=== PATIENT | male | born 1995 | race Caucasian/White ===

== ENCOUNTER → 2020-04-03 | Outpatient (CLI) | payer BC ==
--- NOTE | 2020-04-03 12:41 | CONS ---
CONSULTATION DATE OF SERVICE: 04/03/2020 A 24-year-old gentleman who has been evaluated in [facility] Center for possible obstructive sleep apnea-hypopnea syndrome. HISTORY OF PRESENT ILLNESS/SLEEP WAKE EVALUATION: Patient usual sleep schedule from 10 p.m. to 6:30 a.m. on weekdays and to 7 am on weekends. He may have problems with falling asleep, although no TV in bedroom. Usually sleeps on the back position or in different position. According to his , he snores and he wakes up from sleep 3 times with nocturia. Positive history of sleep walking since childhood, presently he had about one episode of sleepwalking per month. Positive history of sleep-talking. In the morning, patient wakes up tired. Usually does not take any naps. [place] Sleepiness Scale is 3. PAST MEDICAL HISTORY: Positive for episodes of cardiac arrhythmia about 2 years ago, headaches. MEDICATIONS: Ibuprofen and Tylenol on p.r.n. basis for headaches. PAST SURGICAL HISTORY: None. SOCIAL HISTORY: Negative for smoking. Alcohol consumption occasional. FAMILY HISTORY: Cancer. REVIEW OF SYSTEMS: Snoring, multiple awakenings from sleep, episodes of sleep walking. PHYSICAL EXAM: gentleman without distress, BP 119/74, HR 52, RR 15, height 6, 0, weight 243.4, BMI 32.9, temperature 98.5, oxygen saturation at room air 97%. OROPHARYNX: Moderately low position of soft palate, Mallampati 2-3. Neck 16-1/4 inches in circumference. LUNGS: Clear to percussion and to auscultation. Good air exchange. No wheezing or rhonchi. HEART: S1, S2 regular. No murmurs, gallops, or rubs. ABDOMEN: Soft and nontender. Bowel sounds are present. No organomegaly appreciated. EXTREMITIES: No clubbing or cyanosis. CUSTOMER CONTACT SALES ASSOCIATE: Awake, alert, and oriented X3. Cranial nerves 2 to 7 intact. There is no fasciculation or atrophy. noted. No focal deficits observed. IMPRESSION: 1. Snoring, multiple awakenings from sleep with nocturia, moderately low position of soft palate, possible obstructive sleep apnea-hypopnea syndrome. 2. Sleepwalking presently about one time per month. 3. Sleep-talking. 4. History of cardiac arrhythmia. 5. Episodes of headaches. PLAN: 1. Polysomnography for evaluation of patient's breathing during sleep. 2. CPAP/BiPAP titration if sleep study confirms obstructive sleep apnea-hypopnea syndrome. 3. Preferable position during sleep on the side. 4. No driving if patient feels any sleepiness. 5. I will see patient for follow up visit to explain results of testing and following plan. Thank you very much for referring this patient for consultation. Sincerely, Wally Monzon MD, PhD, FAASM Diplomat of [employer] Stitcher of [facility] MMODL / IJN: [id number] /
== END | disposition home or self-care (01) ==
LOC: SLEEP 10:44
PROVIDERS: ATTEND Family Medicine
DX: R35.1 Nocturia (principal); F51.3 Sleepwalking [somnambulism]; G47.8 Other sleep disorders; Z86.79 Personal history of other diseases of the circulatory system; Z86.69 Personal history of other diseases of the nervous system and sense organs
CPT/HCPCS: 99211

== ENCOUNTER → 2020-04-24 | Outpatient (CLI) | payer BC ==
--- NOTE | 2020-04-24 16:39 | SFUN ---
SLEEP CENTER FOLLOW UP NOTE DATE OF SERVICE: A 24-year-old gentleman who has been followed in the Sleep Center to discuss results of the sleep test in following plan. I discussed results of sleep study with patient in detail. No significant respiratory abnormalities have been documented. Normal oxygenation during sleep. Snoring has been documented. Sleep talking has been documented. The patient also has history of sleepwalking since childhood. Presently, it is about one time per month. I discussed with the patient and mechanism of sleepwalking, that it is coming from delta sleep and amount of delta sleep may be increased with sleep restriction and subsequently that may increase risk for sleepwalking. [place] Sleepiness Scale today is 3. MEDICATIONS: Ibuprofen [id number]. PHYSICAL EXAM: Patient in no distress, BP 134/74, HR 52, RR16, temperature 98.6, oxygen saturation on room air 97%. HEENT: PERRLA, EOMI, evaluation of oropharynx showed tongue protrudes midline. NECK: Supple, no JVD. Thyroid is not palpable. LUNGS: Clear to percussion and to auscultation. Good air exchange. No wheezing or rhonchi. HEART: S1, S2 regular. No murmurs, gallops, or rubs. ABDOMEN: Soft and nontender. Bowel sounds are present. No organomegaly appreciated. EXTREMITIES: No clubbing or cyanosis. CLOTH GRADER: Awake, alert, and oriented X3. Cranial nerves 2 to 7 intact. There is no fasciculation or atrophy. noted. No focal deficits observed. IMPRESSION: 1. No significant respiratory abnormalities by results of sleep test. Normal oxygenation during sleep. 2. Mild snoring has been documented. 3. Sleepwalking about one time per month. 4. Sleeptalking. 5. Bradycardia. PLAN: 1. Sleep hygiene with regular time in bed for at least 8 hours. I explained to the patient the risk for increasing episodes of sleepwalking with restriction of the sleep. 2. Precautions related to driving. No driving if feeling sleepiness. 3. Preferable position during the sleep on the side. 4. Spent with patient 25 minutes. Thank you very much for allowing me to participate in the management of your patient. Sincerely, Walyl Monzon MD, PhD, FAASM Diplomat of [employer] Service Station Manager [facility] MMODL / IJN: [id number] /
== END | disposition home or self-care (01) ==
LOC: SLEEP 13:08
PROVIDERS: ATTEND Internal Medicine
DX: R06.83 Snoring (principal); R00.1 Bradycardia, unspecified; F51.3 Sleepwalking [somnambulism]

== ENCOUNTER → 2021-02-17 | Outpatient (CLI) | payer OTHER ==
[2021-02-17 14:06] LABS: Creatinine 24 Hour,Urine 489.6 mg/24hr (1000.0-2000.0)
[2021-02-17 18:44] LABS: Urine Creatinine 32.5 mg/dL
[2021-02-17 19:00] LABS: Creatinine,Urine Random 29.3 mg/dL
[2021-02-17 23:21] LABS: Total Volume 24 Hour,Urine 3200 mL
== END | disposition home or self-care (01) ==
LOC: LABWHC1 08:25
PROVIDERS: ATTEND Surgery
DX: Z00.5 Encounter for examination of potential donor of organ and tissue (principal)
CPT/HCPCS: 36415; 81050; 82043; 82570; 82575; 84156

== ENCOUNTER 2021-07-26 23:29 | Emergency (ER) | payer OTHER ==
[2021-07-26 23:34] VITALS: TEMP 97.3
[2021-07-27] MEDS ORDERED: SODIUM CHLORIDE 0.9% 1,000 ML IV STA ×2 (00:13→01:47)
[2021-07-27] MEDS ORDERED: ONDANSETRON 4 MG/2 ML VIAL IVP STA ×2 (00:13→01:47)
[2021-07-27] MEDS ORDERED: FAMOTIDINE 20 MG/2 ML VIAL IV STA (00:14)
--- NOTE | 2021-07-27 00:17 | ED ---
General Adult HPI - General Source: patient, RN notes reviewed Mode of arrival: ambulatory <Anna Ball - Last Filed: 07/27/21 17:01> <Monse Mora - Last Filed: 07/29/21 23:51> - General Chief complaint: Nausea/Vomiting/Diarrhea Stated complaint: Vomiting Time Seen by Provider: 07/26/21 23:57 - History of Present Illness Initial comments: 26-year-old male presents to the emergency department independently for evaluation of nausea, vomiting, and diarrhea. Patient states symptoms began this evening around 8 PM after having had chicken noodle soup for dinner around 6:00pm. Patient attributes his symptoms to food poisoning as his spouse has similar complaints. Patient denies any known sick exposures. States he has been eating and drinking and feeling fine until this evening. Complains of mild abdominal discomfort he attributes to multiple episodes of vomiting. Denies fever, headache, chest pain, shortness of breath, constipation, dysuria, and hematuria. (Anna Ball) - Related Data Previous Rx's Medication Instructions Recorded Ondansetron Odt [Zofran Odt] 4 mg PO Q8HR PRN #10 tab 07/27/21 Allergies Allergy/AdvReac Type Severity Reaction Status Date / Time No Known Allergies Allergy Verified 07/26/21 23:34 Review of Systems ROS Other: All systems not noted in ROS Statement are negative. <Anna Ball - Last Filed: 07/27/21 17:01> ROS Other: All systems not noted in ROS Statement are negative. <Monse Mora - Last Filed: 07/29/21 23:51> ROS Statement: Those systems with pertinent positive or pertinent negative responses have been documented in the HPI. Past Medical History Past Medical History: No Reported History History of Any Multi-Drug Resistant Organisms: None Reported Past Surgical History: No Surgical Hx Reported Smoking Status: Never smoker Past Alcohol Use History: None Reported Past Drug Use History: None Reported <Anna Ball - Last Filed: 07/27/21 17:01> General Exam Limitations: no limitations (Well-developed, well-nourished male in no acute distress. Initial temperature 97.3, pulse 82, respirations 19, blood pressure 120/77, pulse ox 98% on room air.) General appearance: alert, in no apparent distress ENT exam: Present: normal exam, normal oropharynx, mucous membranes moist Respiratory exam: Present: normal lung sounds bilaterally. Absent: respiratory distress, wheezes, rales, rhonchi, stridor Cardiovascular Exam: Present: regular rate, normal rhythm, normal heart sounds. Absent: systolic murmur, diastolic murmur, rubs, gallop, clicks GI/Abdominal exam: Present: soft, tenderness (Mild epigastric tenderness upon palpation), normal bowel sounds. Absent: distended, guarding, rebound, rigid Neurological exam: Present: alert, oriented X3, CN II-XII intact Psychiatric exam: Present: normal affect, normal mood Skin exam: Present: warm, dry, intact, pallor <Anna Ball - Last Filed: 07/27/21 17:01> Course <Anna Ball - Last Filed: 07/27/21 17:01> Vital Signs 07/26/21 07/27/21 07/27/21 23:31 02:19 03:11 Temperature 97.3 F L Pulse Rate 82 76 76 Respiratory 19 16 18 Rate Blood Pressure 120/77 123/76 137/75 O2 Sat by Pulse 98 98 97 Oximetry - Reevaluation(s) Reevaluation #1: 07/27/21 01:45 Patient experienced approximately an hour with relief of symptoms, though is now vomiting again. Zofran and IVF orders. Will continue to monitor. 07/27/21 02:15 Upon reevaluation, patient is resting comfortably and verbalizes readiness for discharge. (Anna Ball) Medical Decision Making - Lab Data Result diagrams: 07/27/21 00:26 07/27/21 00:26 <Anna Ball - Last Filed: 07/27/21 17:01> - Lab Data Result diagrams: 07/27/21 00:26 07/27/21 00:26 <Monse Mora - Last Filed: 07/29/21 23:51> - Medical Decision Making 26-year-old male with no significant past medical history presents to the emergency department for evaluation of nausea, vomiting, diarrhea, onset this evening. Upon exam, patient appears to be feeling poorly, though is nontoxic in appearance. Patient afebrile, not tachycardic nor tachypneic. He is having occasional episodes of vomiting. Attributes symptoms to include as other members of his household are experiencing similar symptoms after consuming chicken noodle dinner tonight. Laboratory studies were obtained and are unremarkable. Patient was given IV fluids and antiemetics with significant improvement. Patient verbalizes readiness for discharge therefore he will be encouraged to follow up with his PCP as needed. Zofran starter pack was dispensed. Return parameters were discussed in detail. Patient verbalizes understanding and agrees with this plan. (Anna Ball) I was available for consultation in the emergency department. The history and physical exam were done by the midlevel provider. I was consulted for this patients care. I reviewed the case with the midlevel provider and based on their presentation of the patient, I agree with the assessment, medical decision making and plan of care as documented. Chart was dictated using [employer] dictation software. Attempts were made to correct any dictation errors however some typographical errors may persist. Patient was seen during a national state of emergency due to the Covid-19 pandemic. (Monse Mora) - Lab Data Lab Results 07/27/21 07/27/21 Range/Units 00:26 00:26 WBC 10.0 (3.8-10.6) k/uL RBC 5.08 (4.30-5.90) m/uL Hgb 15.3 (13.0-17.5) gm/dL Hct 46.7 (39.0-53.0) % MCV 91.8 (80.0-100.0) fL MCH 30.0 (25.0-35.0) pg MCHC 32.7 (31.0-37.0) g/dL RDW 12.2 (11.5-15.5) % Plt Count 222 (150-450) k/uL MPV 7.1 Neutrophils % 81 % Lymphocytes % 15 % Monocytes % 3 % Eosinophils % 1 % Basophils % 0 % Neutrophils # 8.0 H (1.3-7.7) k/uL Lymphocytes # 1.4 (1.0-4.8) k/uL Monocytes # 0.3 (0-1.0) k/uL Eosinophils # 0.1 (0-0.7) k/uL Basophils # 0.0 (0-0.2) k/uL Sodium 138 (137-145) mmol/L Potassium 4.0 (3.5-5.1) mmol/L Chloride 102 (98-107) mmol/L Carbon Dioxide 25 (22-30) mmol/L Anion Gap 11 mmol/L BUN 22 H (9-20) mg/dL Creatinine 1.04 (0.66-1.25) mg/dL Est GFR (CKD-EPI)AfAm >90 (>60 ml/min/1.73 sqM) Est GFR (CKD-EPI)NonAf >90 (>60 ml/min/1.73 sqM) Glucose 106 H (74-99) mg/dL Calcium 9.5 (8.4-10.2) mg/dL Total Bilirubin 0.8 (0.2-1.3) mg/dL AST 34 (17-59) U/L ALT 28 (4-49) U/L Alkaline Phosphatase 76 (38-126) U/L Total Protein 8.3 H (6.3-8.2) g/dL Albumin 4.8 (3.5-5.0) g/dL Lipase 64 (23-300) U/L Disposition Is patient prescribed a controlled substance at d/c from ED?: No Time of Disposition: 03:01 <Anna Ball - Last Filed: 07/27/21 17:01> <Monse Mora - Last Filed: 07/29/21 23:51> Clinical Impression: Nausea & vomiting Disposition: HOME SELF-CARE Condition: Stable Instructions (If sedation given, give patient instructions): Acute Nausea and Vomiting (ED) Additional Instructions: Consider electrolyte solutions such as Gatorade or Powerade. Take Zofran for nausea. Implement "brat" diet as discussed (bananas, rice, applesauce, toast). Follow-up with your PCP for recheck in the next few days. Return to the emergency department with any new, worsening, or concerning symptoms. Prescriptions: Ondansetron Odt [Zofran Odt] 4 mg PO Q8HR PRN #10 tab PRN Reason: Nausea Referrals: Josephine Anderson MD [Primary Care Provider] - 1-2 days
[2021-07-27 00:32] LABS: Basophils % (A) 0 %; Eosinophils # (A) 0.1 k/uL (0-0.7); Eosinophils % (A) 1 %; HCT 46.7 % (39.0-53.0); HGB 15.3 gm/dL (13.0-17.5); Lymphocytes # (A) 1.4 k/uL (1.0-4.8); Lymphocytes % (A) 15 %; MCHC 32.7 g/dL (31.0-37.0); MCV 91.8 fL (80.0-100.0); Mean Platelet Volume 7.1; Monocytes # (A) 0.3 k/uL (0-1.0); Monocytes % (A) 3 %; Neutrophils % (A) 81 %; Platelet Count 222 k/uL (150-450); RBC 5.08 m/uL (4.30-5.90); RDW 12.2 % (11.5-15.5)
[2021-07-27 00:41] LABS: ALT 28 U/L (4-49); AST 34 U/L (17-59); African American GFR (CKD) >90 (>60 ml/min/1.73 sqM); Albumin 4.8 g/dL (3.5-5.0); Alkaline Phosphatase 76 U/L (38-126); Anion Gap 11 mmol/L; Blood Urea Nitrogen 22 mg/dL (9-20); Calcium 9.5 mg/dL (8.4-10.2); Carbon Dioxide 25 mmol/L (22-30); Chloride 102 mmol/L (98-107); Glucose 106 mg/dL (74-99); Lipase 64 U/L (23-300); Non-African American GFR(CKD) >90 (>60 ml/min/1.73 sqM); Sodium 138 mmol/L (137-145); Total Bilirubin 0.8 mg/dL (0.2-1.3); Total Protein 8.3 g/dL (6.3-8.2)
[2021-07-27 02:21] VITALS: PULSE 76
[2021-07-27] MEDS ORDERED: ONDANSETRON 4 MG ODT STARTER PACK 2 TAB BTL PO STA (02:26)
[2021-07-27 03:13] VITALS: BP 137/75; RESP 18
== END 2021-07-27 03:24 | disposition home or self-care (01) ==
LOC: EC 23:29
DX: R11.2 Nausea with vomiting, unspecified (principal)
CPT/HCPCS: 36415; 80053; 83690; 85025; 99284; 96374; 96375; 96376; 96361 ×2; J2405; S0119

== ENCOUNTER → 2024-02-01 | Outpatient (CLI) | payer BC ==
--- NOTE | 2024-02-01 09:16 | XR ---
EXAMINATION TYPE: XR knee 4V RT DATE OF EXAM: 02/01/2024 8:49 AM CLINICAL INDICATION: Male, 28 years old with history of M25.561 RIGHT KNEE PAIN; COMPARISON: None. TECHNIQUE: XR knee 4V RT; examined in Frontal, lateral and oblique sunrise patellar projections. FINDINGS: Osseous body of the medial aspect of the patella subcutaneous tissues on thinners patellar view. No evidence of any acute osseous pathology, soft tissue swelling, or joint effusion is noted. IMPRESSION: 1. No acute osseous pathology. 2. Osseous body of the medial aspect of the patella. Appears to be within the subcutaneous tissues po ssibly secondary to recent injury.
== END | disposition home or self-care (01) ==
LOC: RADXRMAIN 08:29
PROVIDERS: ATTEND Family Medicine
DX: M25.561 Pain in right knee (principal)